=== PATIENT | male | born 1970 | race Caucasian/White ===

== ENCOUNTER 2018-10-25 10:25 | Day surgery (SDC) | payer BC ==
--- OUTSIDE RECORDS SUMMARY | 2018-10-25 10:28 | XMS REPORT ---
:1970 Author Organization [facility] Address [address] [place] [address] Dr. Arias [address] [place] [id number] Care Team Providers Name Role Phone Unavailable Unavailable Unavailable Problems This patient has no known problems. Allergies, Adverse Reactions, Alerts This patient has no known allergies or adverse reactions. Medications This patient has no known medications.
[2018-10-25] MEDS ORDERED: BALANCED SALT IRRIG PLAIN 500 ML BTL IRR ONE (11:11)
[2018-10-25] MEDS ORDERED: EPINEPHRINE/PF 1 MG/ML AMP ONE (11:11)
[2018-10-25] MEDS ORDERED: DUOVISC 1 KIT OPTH ONE (11:11)
[2018-10-25] MEDS ORDERED: NS 0.9% VIAL 10 ML ONE (11:11)
[2018-10-25] MEDS ORDERED: LIDOCAINE 1% MPF 2 ML AMPULE ONE (11:12)
[2018-10-25] MEDS ORDERED: BUPIVACAINE 0.25% PF 10 ML VIAL ONE (11:15)
[2018-10-25] MEDS ORDERED: TETRACAINE HCL 0.5% 4ML OPTH ONE (11:15)
[2018-10-25] MEDS ORDERED: NA CHLORIDE 0.9% 500 ML ONE (11:15)
[2018-10-25] MEDS ORDERED: LIDOCAINE 2% MPF 5 ML VIAL ONE (11:15)
[2018-10-25] MEDS: CYCLOPENTOLATE 1% OPTH 2 ML ONE ×3 (11:18→11:31)
[2018-10-25] MEDS: PHENYLEPHRINE 10% OPTH 5ML ONE ×3 (11:18→11:31)
[2018-10-25] MEDS: LIDOCAINE HCL/PF 3.5% OPTH GEL ONE ×3 (11:45→12:04)
[2018-10-25] MEDS ORDERED: FENTANYL CITR 100 MCG/2 ML ONE (11:58)
[2018-10-25] MEDS ORDERED: MIDAZOLAM HCL 2 MG/2 ML INJ ONE (11:59)
[2018-10-25] MEDS ORDERED: TRYPAN BLUE 0.5 ML SYR OPTH ONE (12:18)
[2018-10-25] MEDS: MOXIFLOXACIN HCL 10 DROPS/ML **OR USE OPTH ONE ×2 (12:23→12:41)
--- NOTE | 2018-10-25 12:50 | P.BOP ---
Preoperative diagnosis: Posterior and anterior subcapsular cataract -mature OS Postoperative diagnosis: Same Primary procedure: Phacoemulsification with IOL OS Estimated blood loss: None Anesthesia: Local (Topical with anesthesia for cataract surgery) Complications: None Implants: ZCB00 +23.5 Transferred to: Other (Day surgery) Condition: Good
[2018-10-25 13:02] VITALS: BP 120/80; TEMP 97.8; O2SAT 100
--- NOTE | 2018-10-25 23:47 | OP ---
Surgeon: Loren Livingston MD Anesthesiologist: Philip Tariq CRNA and Cosme Malone MD Preoperative Diagnosis: Anterior subcapsular and posterior subcapsular cataract , mature cataract, left eye. Operation Performed: Phacoemulsification with intraocular lens left eye complex with use of trypan blue. Anesthesia: Per cataract surgery. Complications: None. Description Of The Procedure: The patient was then transferred to the operative room where they were prepped and draped in the usual sterile fashion for ophthalmic surgery. A lid speculum was placed in the left eye. There was poor red reflex and a decision was made to use trypan blue. Paracentesis sites were made superiorly and inferiorly in the limbal cornea. Trypan blue was placed in the anterior chamber. This was followed by balanced salt solution that was used to rinse out the trypan blue from the anterior chamber Viscoat was placed in the eye. A crescent blade was used to create a tunnel incision in the temporal cornea. A keratome was used to enter the anterior chamber. Provisc was placed in the eye. A 360 degree capsulotomy was performed with a cystitome. The lens was hydrodissected with balanced salt solution and moved freely. The lens was removed in a stop and chop fashion. 2.58 CDE was required. Irrigation and aspiration were used to remove residual cortex. Provisc was placed in the eye and a ZCB00 +23.5 diopter lens was placed in the capsular bag without complications. Irrigation and aspiration were used to remove residual Viscoat. The paracentesis sites were hydrated with balanced salt solution. The wound and paracentesis sites were inspected and found to be watertight. Intracameral Vigamox 0.07 cc was injected at the end of the procedure. The eye was patched with a clear shield and the patient was returned to day surgery in good condition. Comments: Akten was placed in the eye in the Day Surgery and irrigated out of the eye with BSS in the OR. Preservative-free 1% lidocaine was placed in the eye prior to Trypan blue. Discharge Instructions: Mr. Velásquez is to follow up with Dr. Livingston in the morning. ED/LUZ MARIA Voice ID: [id number] Report ID: [id number] [facility]
== END 2018-10-25 13:22 | disposition home or self-care (01) ==
LOC: OR 10:25
PROVIDERS: ATTEND Ophthalmology Retina Specialist
PROC: 08RK3JZ Replacement of Left Lens with Synthetic Substitute, Percutaneous Approach (ICD-10-PCS; principal; 2018-10-25 11:30)
DX: H25.032 Anterior subcapsular polar age-related cataract, left eye (principal); H25.042 Posterior subcapsular polar age-related cataract, left eye; K21.9 Gastro-esophageal reflux disease without esophagitis; Z88.0 Allergy status to penicillin
CPT/HCPCS: J0171; J2001; J2250; J3010